=== PATIENT | male | born 1960 | race Caucasian/White ===

== ENCOUNTER 2021-03-19 11:22 | Outpatient (CLI) | payer OTHER, SELFPAY | END 2021-03-19 11:23 | disposition home or self-care (01) | LOC: CHSLAB 11:28 | PROVIDERS: PCP Family Medicine; Visit Provider Specialist | DX: C44.311 Basal cell carcinoma of skin of nose (principal) | CPT/HCPCS: 88305 ==

== ENCOUNTER 2022-09-02 09:01 | Outpatient (CLI) | payer MEDICARE, MEDICAID, SELFPAY | END 2022-09-02 09:02 | disposition home or self-care (01) | PROVIDERS: PCP Family Medicine; Visit Provider Specialist | DX: C44.222 Squamous cell carcinoma of skin of right ear and external auricular canal (principal) | CPT/HCPCS: 88305 ==